=== PATIENT | female | born 1990 ===

== ENCOUNTER → 2018-10-29 13:21 | Outpatient (REF) | payer OTHER, SELFPAY ==
[2018-10-29 13:52] LABS: Alanine Aminotransferase 24 IU/L (9-52); Albumin 4.6 g/dL (3.5-5.0); Albumin Globulin Ratio 1.5 (1.0-2.8); Alkaline Phosphatase 43 U/L (38-126); Aspartate Aminotransferase 24 IU/L (14-36); BUN Creatinine Ratio 14.3 (6-22); Bilirubin Total 0.5 mg/dL (0.2-1.3); Blood Urea Nitrogen 10 mg/dL (7-17); Calcium 9.5 mg/dL (8.4-10.2); Carbon Dioxide 24 mmol/L (22-32); Chloride 102 mmol/L (98-107); Estimated Glomerular Filt Rate > 60.0 mL/min (>60); Globulin 3.1 g/dL (1.7-4.1); Glucose 102 mg/dL (70-100); HEMOLYSIS < 15 (0-50); Sodium 142 mmol/L (137-145); Total Protein 7.7 g/dL (6.3-8.2)
[2018-10-29 14:16] LABS: Add Manual Diff / Slide Review NO; Basophils Percent Auto 0.8 % (0-2); Eosinophils Percent Auto 1.6 % (2-4); Hematocrit 38.6 % (36-46); Hemoglobin 13.1 g/dL (12.0-16.0); Lymphocytes Percent Auto 25.7 % (25-40); Mean Corpuscular HGB Conc 33.8 % (30-36); Mean Corpuscular Hemoglobin 30.9 PG (26-34); Mean Corpuscular Volume 91.3 fL (80-100); Monocytes Percent Auto 7.6 % (3-14); Neutrophils Absolute Auto 3500 /uL (3000-5900); Neutrophils Percent Auto 64.3 % (50-75); Platelet Count 307 X10^3/uL (150-400); Red Blood Cell Count 4.22 X10^6/uL (4.0-5.2); Red Cell Distribution Width 13.1 % (11.6-14.8); White Blood Cell Count 5.5 X10^3/uL (4.5-11.0)
[2018-10-29 14:22] LABS: Thyroid Stimulating Hormone 0.04 uIU/mL (0.47-4.68)
[2018-10-29 16:16] LABS: Urine N gonorrhoeae NOT DETECTED
[2018-10-29 16:25] LABS: HIV 1 and 2 Antibody NEGATIVE (NEGATIVE); Hep C Virus Ab w/Reflex Quant NEGATIVE s/c (NEGATIVE); Hepatitis B Surface Antigen NEGATIVE s/c (NEGATIVE)
[2018-10-29 17:33] LABS: Urine Chlamydia NOT DETECTED
[2018-10-30 12:37] LABS: Free T3, Triiodothyronine Free 3.94 pg/mL (2.77-5.27); T4 Total Thyroxine 9.64 ug/dL (5.5-11.0)
[2018-10-31 10:48] LABS: RPR Screen Nonreactive (Nonreactive)
[2018-10-31 15:06] LABS: Hepatitis B Core Antibody Nonreactive (Nonreactive)
[2018-10-31 15:06] LABS: Hepatitis B Surf Ab Qualitativ Reactive (Nonreactive)
== END ==
LOC: LAB 13:21
PROVIDERS: Visit Provider Naturopath
DX: Z11.3 Encounter for screening for infections with a predominantly sexual mode of transmission (principal); Z00.00 Encounter for general adult medical examination without abnormal findings
CPT/HCPCS: 36415; 80053; 84436; 84443; 84481; 85025; 86592; 86703; 86704; 86706; 86803; 87340; 87491; 87591; 87624; 88142